=== PATIENT | male | born 1935 | race Caucasian/White ===

== ENCOUNTER 2017-01-20 17:45 | Emergency (ER) | payer OTHER ==
[~2017-01-20] VITALS: Ht 177.8 cm; Wt 61.8 kg
[~2017-01-20 17:45] MED LIST: AMLODIPINE BESYL5 MG PO; ATENOLOL50 MG PO; BACTRIM,SEPT1 TABLET PO; FOLIC ACID1 MG PO; OMEPRAZOLE20 M2 PO; TAMSULOSIN HCL0.4 MG PO
[2017-01-20 18:42] LABS: MCH 30.8 PG (29.0-34.0); MCHC 31.9 G/DL (30.0-36.0); MCV 96.5 FL (86-99); MEAN PLAT.VOLUME 9.2 uM^3 (9.0-12.4); PLATELET COUNT 124 K/uL (156-360); RBC DIS.WIDTH-CV 13.4 % (11.8-14.6); RBC DIS.WIDTH-SD 48.3 % (39-53); RED BLOOD COUNT 4.87 M/uL (4.00-5.50); WHITE BLOOD COUNT 4.1 K/uL (4.1-10.2)
[2017-01-20 18:45] LABS: ADD MIUA? NO; BILIRUBIN NEGATIVE; BLOOD NEGATIVE; COLOR YELLOW ((YELLOW)); GLUCOSE (STRIP) NEGATIVE; KETONES NEGATIVE; LEUKOCYTES NEGATIVE; NITRITE NEGATIVE; PROTEIN (STRIP) 30; SPECIFIC GRAVITY 1.019 (1.000-1.030); UCUL ADDED? NO; UROBILINOGEN 0.2 MG/DL (0.2-1.0)
[2017-01-20 19:22] LABS: CHLORIDE 103 mEq/L (99-109); POTASSIUM 4.7 mEq/L (3.7-5.4); SODIUM 141 mEq/L (136-147)
[2017-01-20 19:24] LABS: GLUCOSE 98 mg/dL (70-99)
[2017-01-20 19:25] LABS: ANION GAP 9 MEQ/L (2-14)
[2017-01-20 19:26] LABS: TOTAL BILIRUBIN 0.7 mg/dL (0.0-1.0)
[2017-01-20 19:27] LABS: ALKALINE PHOSPHATASE 79 IU/L (3-129)
[2017-01-20 19:28] LABS: GFR ESTIMATE (CALCULATED) 51 mL/min/
[2017-01-20 19:29] LABS: UREA NITROGEN (BUN) 22 mg/dL (9-23)
[2017-01-20 20:50] VITALS: BP 188/78
== END 2017-01-20 20:51 | disposition home or self-care (01) ==
LOC: EME 17:45
DX: R53.1 Weakness (principal); I10 Essential (primary) hypertension
CPT/HCPCS: 71020; 80053; 81003; 85027; 93005; 99281; 99284

== ENCOUNTER 2017-02-10 11:44 | Emergency (ER) | payer OTHER ==
[~2017-02-10] VITALS: Ht 177.8 cm; Wt 61.4 kg
[2017-02-10 13:12] LABS: EOSINOPHIL (%) 2.5 % (0-5); EOSINOPHIL COUNT 0.1 K/uL (0-0.3); HEMATOCRIT 44.3 % (38.0-50.0); IMMATURE GRANULOCYTE (%) 0.5 % (0.0-0.7); INSTRUMENT ABS NEUTROPHIL CT 2.8 K/uL; LYMPHOCYTE COUNT 0.6 K/uL (1.0-2.8); MCH 31.1 PG (29.0-34.0); MCHC 32.1 G/DL (30.0-36.0); MCV 97.1 FL (86-99); MONOCYTE (%) 9.2 % (3-12); MONOCYTE COUNT 0.4 K/uL (0-0.8); NEUTROPHIL (%) 71.7 % (45-76); NEUTROPHIL COUNT 2.8 K/uL (1.8-6.4); PLATELET COUNT 138 K/uL (156-360); RBC DIS.WIDTH-CV 13.3 % (11.8-14.6); RBC DIS.WIDTH-SD 47.5 % (39-53); RED BLOOD COUNT 4.56 M/uL (4.00-5.50); WHITE BLOOD COUNT 3.9 K/uL (4.1-10.2)
[2017-02-10 13:15] LABS: ADD MIUA? NO; BILIRUBIN NEGATIVE; BLOOD NEGATIVE; COLOR YELLOW ((YELLOW)); GLUCOSE (STRIP) 150; KETONES NEGATIVE; LEUKOCYTES NEGATIVE; NITRITE NEGATIVE; PROTEIN (STRIP) 30; SPECIFIC GRAVITY 1.021 (1.000-1.030); UCUL ADDED? NO; UROBILINOGEN 0.2 MG/DL (0.2-1.0)
[2017-02-10 13:17] LABS: INTER. NORMALIZED RATIO 1.1; PROTHROMBIN TIME 11.7 SEC (10.2-12.9)
[2017-02-10 13:20] LABS: PTT 31.6 SEC (25-37)
[2017-02-10 13:22] LABS: CHLORIDE 110 mEq/L (99-109); SODIUM 144 mEq/L (136-147)
[2017-02-10 13:25] LABS: GLUCOSE 79 mg/dL (70-99)
[2017-02-10 13:26] LABS: ANION GAP 6 MEQ/L (2-14)
[2017-02-10 13:27] LABS: TOTAL BILIRUBIN 0.6 mg/dL (0.0-1.0)
[2017-02-10 13:28] LABS: ALKALINE PHOSPHATASE 98 IU/L (3-129); GFR ESTIMATE (CALCULATED) 56 mL/min/
[2017-02-10 13:30] LABS: DIRECT BILIRUBIN 0.2 mg/dL (0.0-0.3); UREA NITROGEN (BUN) 25 mg/dL (9-23)
[2017-02-10 13:32] LABS: TROP-I INTERPRETATION NEGATIVE; TROPONIN-I < 0.01 ng/mL (0.0-0.30)
[2017-02-10 17:08] VITALS: BP 164/76
== END 2017-02-10 17:28 | disposition home or self-care (01) ==
LOC: EME 11:44
PROVIDERS: Emergency Medicine
DX: R53.1 Weakness (principal); G30.0 Alzheimer's disease with early onset; F02.80 Dementia in other diseases classified elsewhere, unspecified severity, without behavioral disturbance, psychotic disturbance, mood disturbance, and anxiety; I10 Essential (primary) hypertension
CPT/HCPCS: 71010; 80048; 80076; 81003; 83605; 83880; 84484; 85025; 85610; 85730; 99281; 99284

== ENCOUNTER 2017-02-24 21:03 | Inpatient (IN) | payer OTHER ==
[~2017-02-24] VITALS: Ht 177.8 cm; Wt 63.1 kg
[2017-02-24 21:11] VITALS: BP 156/79
[2017-02-24 21:37] LABS: BASE EXCESS 0.7 mEq/L (-3 to +3); BICARBONATE 26.6 mEq/L (22-26); CARBOXY HGB 2.1 % (0-5); COMMENTS - BLOOD GASES A+C+; DEVICE RA; METHEMOGLOBIN 1.4 % (0-1.5); PCO2 46 mm Hg (35-45); PO2 76 mm Hg (80-100); SITE RR; pH 7.37 (7.35-7.45)
[2017-02-24 21:38] LABS: EOSINOPHIL (%) 2.9 % (0-5); EOSINOPHIL COUNT 0.1 K/uL (0-0.3); HEMATOCRIT 43.7 % (38.0-50.0); IMMATURE GRANULOCYTE (%) 0.4 % (0.0-0.7); INSTRUMENT ABS NEUTROPHIL CT 3.4 K/uL; LYMPHOCYTE COUNT 0.8 K/uL (1.0-2.8); MCH 30.8 PG (29.0-34.0); MCHC 31.8 G/DL (30.0-36.0); MCV 96.7 FL (86-99); MEAN PLAT.VOLUME 9.4 uM^3 (9.0-12.4); MONOCYTE (%) 9.9 % (3-12); MONOCYTE COUNT 0.5 K/uL (0-0.8); NEUTROPHIL (%) 70.6 % (45-76); NEUTROPHIL COUNT 3.4 K/uL (1.8-6.4); PLATELET COUNT 141 K/uL (156-360); RBC DIS.WIDTH-CV 13.3 % (11.8-14.6); RBC DIS.WIDTH-SD 47.5 % (39-53); RED BLOOD COUNT 4.52 M/uL (4.00-5.50); WHITE BLOOD COUNT 4.9 K/uL (4.1-10.2)
[2017-02-24 21:46] LABS: INTER. NORMALIZED RATIO 1.1; PROTHROMBIN TIME 11.9 SEC (10.2-12.9)
[2017-02-24 21:48] LABS: PTT 30.8 SEC (25-37)
[2017-02-24 21:55] LABS: CHLORIDE 109 mEq/L (99-109); SODIUM 142 mEq/L (136-147)
[2017-02-24 21:57] LABS: GLUCOSE 141 mg/dL (70-99)
[2017-02-24 21:58] LABS: ANION GAP 9 MEQ/L (2-14)
[2017-02-24 21:59] VITALS: BP 166/78
[2017-02-24 21:59] LABS: TOTAL BILIRUBIN 0.6 mg/dL (0.0-1.0)
[2017-02-24 22:01] LABS: GFR ESTIMATE (CALCULATED) 51 mL/min/
[2017-02-24 22:02] LABS: ALKALINE PHOSPHATASE 80 IU/L (3-129)
[2017-02-24 22:03] LABS: DIRECT BILIRUBIN 0.2 mg/dL (0.0-0.3); UREA NITROGEN (BUN) 24 mg/dL (9-23)
[2017-02-24 22:04] LABS: SALICYLATE < 5.0 MG/DL (15-30)
[2017-02-24 23:00] VITALS: BP 125/59
[2017-02-24] MEDS ORDERED: CILOSTAZOL50 MG PO (23:01)
[2017-02-24] MEDS ORDERED: EXELON PATCH4.6 MG TD (23:01)
[2017-02-25] VITALS (12 sets, daily range): BP systolic 132–0198; BP diastolic 72–97
[2017-02-25 01:45] LABS: ADD MIUA? YES; BILIRUBIN NEGATIVE; BLOOD LARGE; COLOR YELLOW ((YELLOW)); GLUCOSE (STRIP) 50; KETONES NEGATIVE; LEUKOCYTES NEGATIVE; NITRITE NEGATIVE; PROTEIN (STRIP) 30; SPECIFIC GRAVITY 1.015 (1.000-1.030); UROBILINOGEN 0.2 MG/DL (0.2-1.0)
[2017-02-25 02:35] LABS: BACTERIA 2+ /HPF; MUCUS 1+ /LPF; RED BLOOD CELLS TNTC /HPF (0-5); UCUL ADDED? YES
[2017-02-25 02:36] LABS: EPITHELIAL CELLS RARE /HPF; WHITE BLOOD CELLS 0-5 /HPF (0-5)
[2017-02-25 02:37] LABS: CASTS PRESENT /LPF; HYALINE CASTS 0-5 /LPF
[2017-02-25 05:50] LABS: HEMATOCRIT 40.6 % (38.0-50.0); MCH 30.8 PG (29.0-34.0); MCHC 31.5 G/DL (30.0-36.0); MCV 97.6 FL (86-99); MEAN PLAT.VOLUME 9.9 uM^3 (9.0-12.4); PLATELET COUNT 115 K/uL (156-360); RBC DIS.WIDTH-CV 13.2 % (11.8-14.6); RBC DIS.WIDTH-SD 47.1 % (39-53); RED BLOOD COUNT 4.16 M/uL (4.00-5.50); WHITE BLOOD COUNT 3.7 K/uL (4.1-10.2)
[2017-02-25 06:24] LABS: POINT-OF-CARE METER ID UU13113803
[2017-02-25 07:14] LABS: ALKALINE PHOSPHATASE 65 IU/L (3-129); ANION GAP 9 MEQ/L (2-14); CHLORIDE 110 MEQ/L (99-109); GFR ESTIMATE (CALCULATED) 56 mL/min/; GLUCOSE 115 mg/dL (70-99); POTASSIUM 3.7 MEQ/L (3.7-5.4); SAMPLE HEMOLYSIS CHECK 0; SAMPLE ICTERIC CHECK 0; SAMPLE LIPEMIA CHECK 0; SODIUM 145 MEQ/L (136-147); TOTAL BILIRUBIN 0.5 MG/DL (0.0-1.0); UREA NITROGEN (BUN) 17 mg/dL (9-23)
[2017-02-25 12:38] LABS: POINT-OF-CARE METER ID UU13113803
[2017-02-25 21:16] LABS: POINT-OF-CARE METER ID UU13113803
[2017-02-26] VITALS (7 sets, daily range): BP systolic 145–203; BP diastolic 65–92
[2017-02-26 00:17] LABS: POINT-OF-CARE METER ID UU13113698
[2017-02-26 05:30] LABS: HEMATOCRIT 43.6 % (38.0-50.0); MCH 31.8 PG (29.0-34.0); MCHC 33.3 G/DL (30.0-36.0); MCV 95.6 FL (86-99); MEAN PLAT.VOLUME 9.7 uM^3 (9.0-12.4); PLATELET COUNT 115 K/uL (156-360); RBC DIS.WIDTH-CV 13.2 % (11.8-14.6); RED BLOOD COUNT 4.56 M/uL (4.00-5.50); WHITE BLOOD COUNT 5.2 K/uL (4.1-10.2)
[2017-02-26 05:54] LABS: ANION GAP 8 MEQ/L (2-14); CHLORIDE 104 MEQ/L (99-109); GFR ESTIMATE (CALCULATED) > 59 mL/min/; GLUCOSE 92 mg/dL (70-99); MAGNESIUM 1.8 mg/dl (1.3-2.7); POTASSIUM 3.5 MEQ/L (3.7-5.4); SAMPLE HEMOLYSIS CHECK 0; SAMPLE ICTERIC CHECK 0; SAMPLE LIPEMIA CHECK 0; SODIUM 140 MEQ/L (136-147); UREA NITROGEN (BUN) 9 mg/dL (9-23)
[2017-02-26 06:29] LABS: POINT-OF-CARE METER ID UU13113781
[2017-02-26 12:16] LABS: POINT-OF-CARE METER ID UU13113698
[2017-02-26 18:02] LABS: POINT-OF-CARE METER ID UU13113698
[2017-02-26 22:18] LABS: POINT-OF-CARE METER ID UU13113698
[2017-02-27] VITALS (7 sets, daily range): BP systolic 106–180; BP diastolic 54–86
[2017-02-27 08:30] LABS: POINT-OF-CARE METER ID UU13113698
[2017-02-27 12:07] LABS: POINT-OF-CARE METER ID UU13113698
[2017-02-27 18:10] LABS: POINT-OF-CARE METER ID UU13113698
[2017-02-28 00:13] LABS: POINT-OF-CARE METER ID UU13113803
[2017-02-28 05:26] VITALS: BP 160/79
[2017-02-28 08:00] VITALS: BP 151/65
[2017-02-28] MEDS ORDERED: AMLODIPINE BESY10 MG PO (11:17)
[2017-02-28] MEDS ORDERED: ASPIR-LOW81 MG PO (11:17)
[2017-02-28] MEDS ORDERED: LISINOPRIL5 MG PO (11:17)
[2017-02-28 12:15] VITALS: BP 150/65
== END 2017-02-28 14:53 | DRG 918 ==
LOC: EME → EDBD 21:03 → 4EAST 02-25 00:25 → EDOF 02-25 00:25 → ENRESERV 02-25 00:29 → 4EAST 02-25 01:50 → ENRESERV 02-27 20:15 → 4EAST 02-28 14:53
PROVIDERS: Emergency Medicine; Hospitalist; Internal Medicine
DX: T44.7X1A Poisoning by beta-adrenoreceptor antagonists, accidental (unintentional), initial encounter (principal); G30.9 Alzheimer's disease, unspecified; I73.9 Peripheral vascular disease, unspecified; I10 Essential (primary) hypertension; Z79.899 Other long term (current) drug therapy; Z66 Do not resuscitate; Z68.1 Body mass index [BMI] 19.9 or less, adult; F02.80 Dementia in other diseases classified elsewhere, unspecified severity, without behavioral disturbance, psychotic disturbance, mood disturbance, and anxiety; R13.10 Dysphagia, unspecified; R04.0 Epistaxis; I69.391 Dysphagia following cerebral infarction; Z51.5 Encounter for palliative care; I44.0 Atrioventricular block, first degree; Z80.0 Family history of malignant neoplasm of digestive organs; Z80.8 Family history of malignant neoplasm of other organs or systems
CPT/HCPCS: 36600; 74230; 80048; 80053; 80076; 81003; 82803; 82948; 83735; 85025; 85027; 85610; 85730; 87086; 92526 GN; 92611 GN; 93005; 99281; 99284; G0480; J0360; J0696; J2405; J7030; J7050; S0028

== ENCOUNTER → 2017-03-12 | Outpatient (CLI) | payer OTHER ==
[~2017-03-12] MED LIST changes: +AMLODIPINE BESY10 MG PO; +ASPIR-LOW81 MG PO; +CILOSTAZOL50 MG PO; +EXELON PATCH4.6 MG TD; +LISINOPRIL5 MG PO
== END ==
LOC: RAD 09:21
DX: R13.11 Dysphagia, oral phase (principal); R13.13 Dysphagia, pharyngeal phase
CPT/HCPCS: 74230; 92611 GN; G8996 GN CL; G8997 GN CL; G8998 GN CL

== ENCOUNTER 2017-04-08 23:59 | Emergency (ER) | payer OTHER ==
[~2017-04-08] VITALS: Ht 175.3 cm; Wt 58.4 kg
[2017-04-09 01:21] LABS: EOSINOPHIL (%) 2.1 % (0-5); EOSINOPHIL COUNT 0.1 K/uL (0-0.3); HEMATOCRIT 40.2 % (38.0-50.0); IMMATURE GRANULOCYTE (%) 0.5 % (0.0-0.7); INSTRUMENT ABS NEUTROPHIL CT 4.7 K/uL; LYMPHOCYTE COUNT 0.5 K/uL (1.0-2.8); MCH 30.9 PG (29.0-34.0); MCHC 32.6 G/DL (30.0-36.0); MCV 94.8 FL (86-99); MEAN PLAT.VOLUME 9.3 uM^3 (9.0-12.4); MONOCYTE (%) 7.5 % (3-12); MONOCYTE COUNT 0.4 K/uL (0-0.8); NEUTROPHIL (%) 81.3 % (45-76); NEUTROPHIL COUNT 4.7 K/uL (1.8-6.4); PLATELET COUNT 150 K/uL (156-360); RBC DIS.WIDTH-CV 13.6 % (11.8-14.6); RBC DIS.WIDTH-SD 47.5 % (39-53); RED BLOOD COUNT 4.24 M/uL (4.00-5.50); WHITE BLOOD COUNT 5.7 K/uL (4.1-10.2)
[2017-04-09 01:26] LABS: INTER. NORMALIZED RATIO 1.1; PROTHROMBIN TIME 11.9 SEC (10.2-12.9)
[2017-04-09 01:29] LABS: PTT 30.4 SEC (25-37)
[2017-04-09 01:35] LABS: CHLORIDE 104 mEq/L (99-109); POTASSIUM 3.7 mEq/L (3.7-5.4); SODIUM 137 mEq/L (136-147)
[2017-04-09 01:36] LABS: GLUCOSE 93 mg/dL (70-99)
[2017-04-09 01:38] LABS: ANION GAP 7 MEQ/L (2-14)
[2017-04-09 01:40] LABS: GFR ESTIMATE (CALCULATED) > 59 mL/min/
[2017-04-09 01:41] LABS: UREA NITROGEN (BUN) 22 mg/dL (9-23)
[2017-04-09 04:19] VITALS: BP 182/86
== END 2017-04-09 04:20 ==
LOC: EME 23:59
PROVIDERS: Emergency Medicine
DX: S00.83XA Contusion of other part of head, initial encounter (principal); S30.1XXA Contusion of abdominal wall, initial encounter; S01.412A Laceration without foreign body of left cheek and temporomandibular area, initial encounter; W18.30XA Fall on same level, unspecified, initial encounter; Y92.129 Unspecified place in nursing home as the place of occurrence of the external cause; I10 Essential (primary) hypertension; G30.9 Alzheimer's disease, unspecified; Z86.73 Personal history of transient ischemic attack (TIA), and cerebral infarction without residual deficits
CPT/HCPCS: 70450; 70486; 72125; 74176; 80048; 85025; 85610; 85730; 99281; 99284